=== PATIENT | male | born 1975 | race Caucasian/White ===

== ENCOUNTER 2017-06-30 06:40 | Emergency (ER) | payer MEDICAID, OTHER ==
[2017-06-30 07:02] VITALS: TEMP 98
[2017-06-30] MEDS ORDERED: LORazepam 1 MG TAB PO ONE (07:14)
--- NOTE | 2017-06-30 07:20 | EDPHY ---
H & P Stated Complaint: ran out of anxiety meds 2 wks ago - wants refill Time Seen by Provider: 06/30/17 07:02 - Personal History Current Tetanus Diphtheria and Acellular Pertussis (TDAP): Yes - Social History Smoking Status: Current every day smoker Constitutional: Initial Vital Signs Temperature (C) 36.6 C 06/30/17 06:52 Heart Rate 133 H 06/30/17 06:52 Respiratory Rate 20 06/30/17 06:52 Blood Pressure 173/135 H 06/30/17 06:52 O2 Sat (%) 95 06/30/17 06:52 O2 Delivery Mode Room Air Allergies/Adverse Reactions: No Known Allergies Allergy (Unverified 08/14/09 20:32) Home Medications: Medication Instructions Recorded None 08/14/09 ALPRAZolam [Xanax 0.5 MG (*)] 0.5 mg PO BID #30 tab 06/30/17 Propranolol HCl 06/30/17 Xanax 06/30/17 Medical Decision Making ED Course/Re-evaluation: CHIEF COMPLAINT: Anxiety panic attack HISTORY OF PRESENT ILLNESS: 42-year-old gentleman who has a history of anxiety. He also does use to drinking 3+ alcoholic beverages nightly. Recently his primary care physician prescribed Xanax for him. The patient ran out of Xanax about 10 days ago. He also stopped drinking alcohol 2 days ago. He is here this morning with elevated heart rate, profuse sweating, anxiety ridden to the point where he is pacing around the room and 1 sit down, and racing thoughts. This patient states that he is having "a mid life crisis" and he had to go back to a job that he did like doing and he cold turkey from Xanax and he cold turkey from alcohol. REVIEW OF SYSTEMS: A 10 point review of systems was performed and is negative with the exception of the elements mentioned in the history of present illness. PHYSICAL EXAM: HR, BP, O2 Sat, RR. Temp noted General Appearance: Alert, well hydrated, appropriate, and non-toxic appearing. Sweating, somewhat tremulous Head: Atraumatic without scalp tenderness or obvious injury Eyes: Pupils equal, round, reactive to light and accommodation, EOMI, no trauma , no injection. Ears: Clear bilaterally, no perforation, normal landmarks Nose: Atraumatic, no rhinorrhea, clear. Throat: There is no erythema or exudates, no lesions, normal tonsils, mucus membranes moist. Neck: Supple, 2+ carotid upstroke, nontender, no lymphadenopathy. Respiratory: No retractions, no distress, no wheezes, and no accessory muscle use. Lungs are clear to auscultation bilaterally. Cardiovascular: Regular rate and rhythm but slightly tachycardic, no murmurs, rubs, or gallops. Bilateral carotid, radial, dorsalis pedis, and posterior tibial pulses intact. Good capillary refill all extremities. Gastrointestinal: Abdomen is soft, nontender, non-distended, no masses, no rebound, no guarding, no peritoneal signs. Musculoskeletal: Normal active ROM of all extremities, atraumatic. Neurological: Alert, appropriate, and interactive. The patient has normal DTRs and non-focal cranial nerves, motor, sensory, and cerebellar exam. Skin: Painted toenails with sparkles, No rashes, good turgor, no nodules on palpation. Past medical history: Anxiety, alcohol abuse Past surgical history: Noncontributory Family history: Noncontributory Social history: Employed, denies tobacco use, denies drug use, drinks 3+ vodka related beverages nightly DIFFERENTIAL DIAGNOSIS: The differential diagnosis for the patient's tremors and tachycardia included but was not limited to peripheral autonomic neurologic causes, central neurologic causes including CVA, TIA, electrolyte abnormalities and dehydration, cardiogenic causes, atypical causes like migraine syndrome, and alcohol and drug withdrawal. MEDICAL DECISION MAKING: This patient is tachycardic, sweating, anxious secondary to cold turkey withdrawal from both benzodiazepines and alcohol which obviously feed the same TARIQ receptors. I will give him a prescription for Xanax but he needs to return to his primary care doctor. Is unsafe to cold turkey from Xanax and alcohol as seizure withdrawal syndrome may be possible. I have warned the patient about the possibility for withdrawal seizures. I have asked him to return to his primary care physician so that he can start to taper this Xanax appropriately while starting a non addicting antianxiety medicine like Lexapro. I have given this patient 1 mg of Ativan here. On re-evaluation it has helped the patient's symptoms tremendously. He will follow up with his primary care doctor. - Data Points Medications Given: Discontinued Medications Albuterol/Ipratropium (Duoneb) 3 ml IH EDNOW ONE Stop: 06/30/17 07:59 Last Admin: 06/30/17 08:02 Dose: 3 ml Lorazepam (Ativan) 1 mg PO EDNOW ONE Stop: 06/30/17 07:15 Last Admin: 06/30/17 07:18 Dose: 1 mg Departure - Departure Disposition: Home, Routine, Self-Care Clinical Impression: Benzodiazepine withdrawal with complication, Anxiety Alcohol withdrawal Qualifiers: Complication of substance-induced condition: with unspecified complication Qualified Code(s): F10.239 - Alcohol dependence with withdrawal, unspecified Condition: Good Instructions: Alcohol Withdrawal (ED), Anxiety (ED), Anxiolysis in Adults (ED) Additional Instructions: Return to her primary care doctor. I would recommend a very slow Xanax withdrawal while starting on a non addicting antianxiety long-term med like Lexapro or Wellbutrin. Wellbutrin might be an excellent choice if you tolerated well since that has antianxiety properties, anti addiction type properties, and can also assist with eating control Referrals: Milagro Nguyen MD [Primary Care Provider] - As per Instructions Prescriptions: ALPRAZolam [Xanax 0.5 MG (*)] 0.5 mg PO BID #30 tab
[2017-06-30] MEDS ORDERED: IPRATROPIUM/ALBUTEROL 3 ML DEYVIAL IH ONE (07:58)
[2017-06-30] MEDS ORDERED: IPRATROPIUM/ALBUTEROL 3 ML DEYVIAL ONE (08:00)
[2017-06-30 08:07] VITALS: RESP 16; O2SAT 97
[2017-06-30 08:36] VITALS: BP 207/128; PULSE 110
== END 2017-06-30 08:34 | disposition home or self-care (01) ==
LOC: CED 06:40
DX: F41.9 Anxiety disorder, unspecified (principal); F10.239 Alcohol dependence with withdrawal, unspecified; F19.239 Other psychoactive substance dependence with withdrawal, unspecified; F17.200 Nicotine dependence, unspecified, uncomplicated